=== PATIENT | female | born 1960 | race Caucasian/White ===

== ENCOUNTER 2019-05-06 13:07 | Emergency (ER) | payer MEDICAID ==
[~2019-05-06] VITALS: Ht 162.6 cm; Wt 81.8 kg
[~2019-05-06 13:07] MED LIST: GLIP5 PO; METF-960 PO
[2019-05-06 13:26] LABS: GLUCOSE,POINT OF CARE 329 MG/DL (70-110)
[2019-05-06] MEDS ORDERED: CYCLOBENZAPRINE HCL 10 MG TABLET PO ONE (14:00)
[2019-05-06] MEDS ORDERED: LIDOCAINE 5% TRANSDERMAL PATCH TD ONE (14:00)
[2019-05-06] MEDS ORDERED: KETOROLAC TROMETHAMINE 30 MG/ML VIAL IM ONE (14:00)
[2019-05-06 15:20] VITALS: BP 134/81
== END 2019-05-06 15:30 | disposition home or self-care (01) ==
LOC: EMS 13:08
DX: M54.5 Low back pain (principal); E11.9 Type 2 diabetes mellitus without complications; Z79.84 Long term (current) use of oral hypoglycemic drugs
CPT/HCPCS: 82962; 96372; 99283; J1885

== ENCOUNTER 2022-04-26 19:27 | Emergency (ER) | payer MEDICAID ==
[~2022-04-26] VITALS: Ht 167.6 cm; Wt 81.8 kg
[~2022-04-26 19:27] MED LIST changes: -GLIP5 PO; +GLIP5TAB12 PO; +METF-1211 PO; -METF-960 PO
[2022-04-26 19:46] VITALS: BP 133/62
[2022-04-26 20:01] LABS: GLUCOSE,POINT OF CARE 193 MG/DL (70-110)
[2022-04-26] MEDS ORDERED: IBUPROFEN 600 MG TABLET PO ONE (20:30)
[2022-04-26] MEDS ORDERED: IBUP-2070 PO (21:34)
== END 2022-04-26 22:06 | disposition home or self-care (01) ==
LOC: EMS 19:28
DX: M25.541 Pain in joints of right hand (principal); E11.9 Type 2 diabetes mellitus without complications
CPT/HCPCS: 82962; 99283